=== PATIENT | male | born 1950 | race Caucasian/White ===

== ENCOUNTER 2019-12-26 12:34 | Inpatient (IN) ==
[2019-12-26 13:07] LABS: Basophils % 0.6 %; Eosinophils # 0.1 K/mcL (0.0-0.6); Eosinophils % 2.4 %; Hematocrit 44.1 % (37.5-50.1); Hemoglobin 14.6 g/dL (12.9-16.9); Immature Granulocytes % 0.2 % (0-4); Lymphocytes # 1.6 K/mcL (0.6-4.6); Lymphocytes % 29.8 %; Mean Corpuscular HGB Conc 33.1 g/dL (31.6-35.5); Mean Corpuscular Hemoglobin 29.7 pg (28.0-33.3); Mean Corpuscular Volume 89.6 fL (83.0-100.0); Mean Platelet Volume 11.2 fL (9.4-12.4); Monocytes # 0.4 K/mcL (0.0-1.3); Monocytes % 8.1 %; Neutrophils # 3.1 K/mcL (1.6-8.9); Platelet Count 277 K/mcL (140-400); Red Blood Count 4.92 M/mcL (4.19-5.50); Red Cell Distribution Width 12.6 % (11.5-14.5); Segmented Neutrophils % 58.9 %; White Blood Count 5.3 K/mcL (4.3-11.1)
[2019-12-26 13:25] LABS: BUN/Creatinine Ratio 22 (6-26); Blood Urea Nitrogen 24 mg/dL (8-23); Calcium 9.3 mg/dL (8.6-10.3); Carbon Dioxide 27 mEq/L (23-29); Chloride 107 mEq/L (98-107); Glucose 85 mg/dL (70-105); Magnesium 2.2 mg/dL (1.6-2.6); Osmolality,Calculated 297 (280-300); Potassium 3.9 mEq/L (3.5-5.1); Sodium 142 mEq/L (136-145); eGFR For African Americans > 60 (> 60); eGFR For Non-African Americans > 60 (> 60)
[2019-12-26 13:26] LABS: Troponin I < 0.03 ng/mL (< 0.04)
[2019-12-26] MEDS ORDERED: Naloxone 0.4 MG/ML INJ IVP PRN (14:44)
[2019-12-27 05:01] LABS: Basophils % 0.3 %; Eosinophils # 0.2 K/mcL (0.0-0.6); Eosinophils % 3.2 %; Hematocrit 42.9 % (37.5-50.1); Immature Granulocytes % 0.2 % (0-4); Lymphocytes # 1.9 K/mcL (0.6-4.6); Lymphocytes % 32.5 %; Mean Corpuscular HGB Conc 32.6 g/dL (31.6-35.5); Mean Corpuscular Volume 88.8 fL (83.0-100.0); Mean Platelet Volume 11.2 fL (9.4-12.4); Monocytes # 0.6 K/mcL (0.0-1.3); Monocytes % 9.4 %; Neutrophils # 3.2 K/mcL (1.6-8.9); Platelet Count 249 K/mcL (140-400); Red Blood Count 4.83 M/mcL (4.19-5.50); Red Cell Distribution Width 12.7 % (11.5-14.5); Segmented Neutrophils % 54.4 %; White Blood Count 5.9 K/mcL (4.3-11.1)
[2019-12-27 05:21] LABS: BUN/Creatinine Ratio 19 (6-26); Blood Urea Nitrogen 22 mg/dL (8-23); Calcium 9.1 mg/dL (8.6-10.3); Carbon Dioxide 27 mEq/L (23-29); Chloride 108 mEq/L (98-107); Glucose 120 mg/dL (70-105); Osmolality,Calculated 299 (280-300); Potassium 3.7 mEq/L (3.5-5.1); Sodium 142 mEq/L (136-145); eGFR For African Americans > 60 (> 60); eGFR For Non-African Americans > 60 (> 60)
[2019-12-27] MEDS: hydroCHLOROthiazide 25 MG TABLET PO SCH (09:17)
[2019-12-27] MEDS: Loratadine 10 MG TABLET PO SCH (09:17)
[2019-12-27] MEDS: Multivit/Ca/Min/Fe/FA 1 TAB TABLET PO SCH (09:18)
[2019-12-27] MEDS: Fluticasone Propionate Nasal 50 MCG/SPRAY BOTTLE NS SCH (09:18)
[2019-12-27] MEDS ORDERED: Perflutren Lipid Microsphere 1.3 ML in 0.9 % Sodium Chloride 8.7 ML IVP PRN (11:17)
[2019-12-27] MEDS: *HR* Heparin 5,000 UNIT/ML VIAL SQ SCH ×2 (14:13→20:14)
[2019-12-27] MEDS ORDERED: 0.9 % Sodium Chloride 2,000 ML ONE (17:08)
[2019-12-27] MEDS ORDERED: Heparin 1,000 UNITS/500 mL 500 ML ONE (17:08)
[2019-12-27] MEDS ORDERED: Nitroglycerin 1,000 MCG/10 ML VIAL IV ONE (17:08)
[2019-12-27] MEDS ORDERED: ISOVUE-370 200 ML INFUS..BTL ONE (17:08)
[2019-12-27] MEDS ORDERED: *HR* Heparin 10,000 UNIT/10 ML VIAL ONE (17:08)
[2019-12-27] MEDS ORDERED: *HR* FentaNYL (PF) 100 MCG/2 ML VIAL ONE (17:26)
[2019-12-27] MEDS ORDERED: *HR* Midazolam HCl 2 MG/2 ML VIAL ONE (17:27)
[2019-12-27] MEDS ORDERED: Acetaminophen 325 MG TABLET PO ONE (19:36)
[2019-12-28] MEDS: *HR* Heparin 5,000 UNIT/ML VIAL SQ SCH (04:29)
[2019-12-28 08:56] VITALS: BP 120/72
[2019-12-28] MEDS: hydroCHLOROthiazide 25 MG TABLET PO SCH (09:37)
[2019-12-28] MEDS: Multivit/Ca/Min/Fe/FA 1 TAB TABLET PO SCH (09:39)
[2019-12-28] MEDS: Loratadine 10 MG TABLET PO SCH (09:39)
[2019-12-28] MEDS: Fluticasone Propionate Nasal 50 MCG/SPRAY BOTTLE NS SCH (10:26)
[2019-12-28] MEDS ORDERED: FLU Vac QV 20-21 (6Month+)/PF 0.5 ML SYRINGE IM ONE (10:41)
== END 2019-12-28 11:22 | disposition home or self-care (01) | DRG 287 ==
LOC: EMEROOARM 12:34 → 2ANU 12:34
PROVIDERS: ADMIT Internal Medicine; ATTEND Internal Medicine